=== PATIENT | male | born 1960 | race African-American/Black ===

== ENCOUNTER 2021-06-17 14:41 | Inpatient (IN) ==
[2021-06-17] MEDS ORDERED: Ipratropium/Albuterol Neb 3 ML IH ONE (16:47)
[2021-06-17] MEDS ORDERED: methylPREDNISolone 125 MG/2 ML VIAL IVP ONE (16:47)
[2021-06-17 17:45] LABS: Basophils % 0.2 %; Mean Corpuscular Volume 70.7 fL (83.0-100.0)
[2021-06-17 17:47] LABS: Eosinophils # 0.2 K/mcL (0.0-0.6); Eosinophils % 2.3 %; Hematocrit 23.4 % (37.5-50.1); Hemoglobin 6.8 g/dL (12.9-16.9); Immature Granulocytes % 0.5 % (0-4); Immature Platelets 7.1 % (1.1-6.1); Lymphocytes # 0.6 K/mcL (0.6-4.6); Lymphocytes % 9.2 %; Mean Corpuscular HGB Conc 29.1 g/dL (31.6-35.5); Mean Corpuscular Hemoglobin 20.5 pg (28.0-33.3); Monocytes # 0.7 K/mcL (0.0-1.3); Monocytes % 10.9 %; Platelet Count 272 K/mcL (140-400); Red Blood Count 3.31 M/mcL (4.19-5.50); Red Cell Distribution Width 20.3 % (11.5-14.5); Segmented Neutrophils % 76.9 %; White Blood Count 6.4 K/mcL (4.3-11.1)
[2021-06-17 18:12] LABS: Neutrophils # 4.9 K/mcL (1.6-8.9)
[2021-06-17 18:13] LABS: Anisocytosis 2+ (Not Present); Hypochromasia Present (Not Present); Platelet Estimate Normal (Normal); Target Cells 1+ (Not Present)
[2021-06-17 18:14] LABS: Microcytosis Present (Not Present); Poikilocytosis 1+ (Not Present)
[2021-06-17 18:22] LABS: Troponin I 0.04 ng/mL (< 0.04)
[2021-06-17 18:24] LABS: Influenza A PCR Negative (Negative); Influenza B PCR Negative (Negative); Resp. Syncytial Virus PCR Negative (Negative)
[2021-06-17 18:26] LABS: SARS-CoV-2 by PCR (In House) Negative (Negative)
[2021-06-17] MEDS ORDERED: Isovue-370 500 ML BOTTLE IVP ONE (18:31)
[2021-06-17 18:45] LABS: Albumin 3.3 g/dL (3.5-5.7); Albumin/Globulin Ratio 0.9 (1.1-2.2); Bilirubin,Direct 0.1 mg/dL (0.0-0.2); Bilirubin,Indirect 0.3 mg/dL (0.0-1.0); Bilirubin,Total 0.4 mg/dL (0.3-1.0); Calcium 8.5 mg/dL (8.6-10.3); Globulin 3.7 g/dL (2.4-3.5); Potassium 3.7 mEq/L (3.5-5.1)
[2021-06-17] MEDS ORDERED: Furosemide 40 MG/4 ML VIAL IVP ONE (18:52)
[2021-06-17 19:05] LABS: Bilirubin,Urine Negative (Negative); Blood,Urine Small (Negative); Clarity,Urine Clear (Clear); Color,Urine Yellow (Yellow); Glucose,Urine (UA) 100 mg/dL (Normal); Ketones,Urine Negative (Negative); Leukocyte Esterase,Urine Negative (Negative); Mucus,Urine Few per lpf (None-Few); Nitrite,Urine Negative (Negative); PH,Urine 6.5 pH Units (5.0-8.0); Protein,Urine >=600 mg/dL (Neg-Trace); Specific Gravity,Urine 1.025 (1.010-1.025); Squamous Epithelial Cell,Urine Few per hpf (None-Few); Urobilinogen,Urine Normal (Normal); WBC,Urine 0-3 per hpf (0-3)
[2021-06-17] MEDS ORDERED: Acetaminophen 325 MG TABLET PO PRN (20:21)
[2021-06-17] MEDS ORDERED: Naloxone 0.4 MG/ML INJ IVP PRN (20:21)
[2021-06-17] MEDS ORDERED: Ondansetron 4 MG/2 ML VIAL IVP PRN (20:21)
[2021-06-17] MEDS ORDERED: 0.9 % Sodium Chloride 250 ML ONE (21:13)
[2021-06-17] MEDS ORDERED: Perflutren Lipid Microsphere 1.3 ML in 0.9 % Sodium Chloride 8.7 ML IVP PRN (21:27)
[2021-06-17] MEDS ORDERED: *HR* Dextrose 50 % in Water (Syg) 50 ML SYRINGE IVP PRN ×2 (21:37→23:47)
[2021-06-17] MEDS ORDERED: D5% in Water 1,000 ML IVC PRN ×2 (21:37→23:47)
[2021-06-17] MEDS ORDERED: Dextrose Gel 15 GM/37.5 ML TUBE PO PRN ×4 (21:37→23:47)
[2021-06-18] MEDS: Ipratropium/Albuterol Neb 3 ML IH SCH ×3 (00:06→08:08)
[2021-06-18] MEDS: Insulin LISPRO 300 UNITS/3 ML VIAL SUBQ SCH ×5 (00:32→21:07)
[2021-06-18] MEDS: Pantoprazole 40 MG VIAL IVP SCH ×3 (01:03→23:41)
[2021-06-18] MEDS: MethylPREDNISolone 40 MG/ML VIAL IVP SCH ×2 (01:04→05:18)
[2021-06-18] MEDS: Azithromycin 500 MG in 0.9 % Sodium Chloride 250 ML IVPB SCH ×2 (01:04→21:07)
[2021-06-18] MEDS: traZODone 50 MG TABLET PO SCH ×2 (01:05→21:07)
[2021-06-18 02:09] LABS: Hematocrit 27.4 % (37.5-50.1); Hemoglobin 7.9 g/dL (12.9-16.9); Immature Platelets 6.2 % (1.1-6.1); Mean Corpuscular HGB Conc 28.8 g/dL (31.6-35.5); Mean Corpuscular Hemoglobin 20.7 pg (28.0-33.3); Mean Corpuscular Volume 71.9 fL (83.0-100.0); Platelet Count 255 K/mcL (140-400); Red Blood Count 3.81 M/mcL (4.19-5.50); Red Cell Distribution Width 21.1 % (11.5-14.5); White Blood Count 4.6 K/mcL (4.3-11.1)
[2021-06-18 02:28] LABS: Calcium 8.2 mg/dL (8.6-10.3); Troponin I 0.03 ng/mL (< 0.04)
[2021-06-18] MEDS: Furosemide 20 MG/2 ML VIAL IVP SCH (09:01)
[2021-06-18 10:00] LABS: INR 1.4; Prothrombin Time 15.6 Seconds (9.4-12.1)
[2021-06-18 10:04] LABS: Albumin 3.4 g/dL (3.5-5.7); Albumin/Globulin Ratio 0.9 (1.1-2.2); Bilirubin,Direct 0.1 mg/dL (0.0-0.2); Bilirubin,Indirect 0.4 mg/dL (0.0-1.0); Bilirubin,Total 0.5 mg/dL (0.3-1.0); Globulin 3.9 g/dL (2.4-3.5); Total Protein 7.3 g/dL (6.4-8.9)
[2021-06-18] MEDS ORDERED: Ipratropium/Albuterol Neb 3 ML IH PRN (10:41)
[2021-06-18] MEDS ORDERED: *HR* Propofol 200 MG/20 ML VIAL IVP ONE ×2 (13:29→13:48)
[2021-06-18] MEDS ORDERED: Lidocaine -MPF 2% 5 ML VIAL ONE (13:30)
[2021-06-18] MEDS: *HR* Heparin 5,000 UNIT/ML VIAL SQ SCH ×2 (15:02→21:07)
[2021-06-18 15:46] LABS: Uric Acid 8.3 mg/dL (2.3-7.6)
[2021-06-18] MEDS: carvediloL 25 MG TABLET PO SCH (16:52)
[2021-06-18] MEDS: Albumin 25% 25gram/100mL 25 GM/100 ML IV.SOLN IVPB SCH (16:54)
[2021-06-19] MEDS: Albumin 25% 25gram/100mL 25 GM/100 ML IV.SOLN IVPB SCH ×2 (01:12→06:06)
[2021-06-19 04:28] LABS: Hemoglobin 7.4 g/dL (12.9-16.9); Red Cell Distribution Width 20.2 % (11.5-14.5)
[2021-06-19 04:30] LABS: Hematocrit 26.4 % (37.5-50.1); Immature Platelets 6.2 % (1.1-6.1); Mean Corpuscular Hemoglobin 20.3 pg (28.0-33.3); Mean Corpuscular Volume 72.5 fL (83.0-100.0); Mean Platelet Volume 11.2 fL (9.4-12.4); Red Blood Count 3.64 M/mcL (4.19-5.50); White Blood Count 7.5 K/mcL (4.3-11.1)
[2021-06-19 05:28] LABS: Calcium 8.3 mg/dL (8.6-10.3); Potassium 4.6 mEq/L (3.5-5.1)
[2021-06-19] MEDS: *HR* Heparin 5,000 UNIT/ML VIAL SQ SCH ×2 (06:07→14:44)
[2021-06-19] MEDS: predniSONE 20 MG TABLET PO SCH (08:04)
[2021-06-19] MEDS: carvediloL 25 MG TABLET PO SCH ×2 (08:04→16:08)
[2021-06-19] MEDS: Furosemide 20 MG/2 ML VIAL IVP SCH (08:04)
[2021-06-19] MEDS: Insulin LISPRO 300 UNITS/3 ML VIAL SUBQ SCH ×4 (08:05→20:49)
[2021-06-19] MEDS: Pantoprazole 40 MG VIAL IVP SCH (11:20)
[2021-06-19] MEDS ORDERED: Azithromycin 500 MG in 0.9 % Sodium Chloride 250 ML IVPB SCH (14:00)
[2021-06-19] MEDS ORDERED: Albumin 25% 25gram/100mL 25 GM/100 ML IV.SOLN IVPB SCH (14:00)
[2021-06-19] MEDS: cefTRIAXone 1,000 MG in 0.9 % Sodium Chloride Mini Bag 100 ML IVPB SCH (14:43)
[2021-06-19] MEDS: hydrALAZINE 25 MG TABLET PO SCH ×2 (16:00→20:48)
[2021-06-19] MEDS: Ipratropium/Albuterol Neb 3 ML IH SCH ×3 (16:11→23:40)
[2021-06-19] MEDS: Insulin DETEMIR 100 UNIT/ML X5UNITS SUBQ SCH ×2 (17:19→20:49)
[2021-06-19] MEDS: traZODone 50 MG TABLET PO SCH (20:48)
[2021-06-20] MEDS: Ipratropium/Albuterol Neb 3 ML IH SCH ×6 (03:34→23:35)
[2021-06-20 05:12] LABS: Hematocrit 24.7 % (37.5-50.1); Immature Platelets 7.6 % (1.1-6.1); Mean Corpuscular HGB Conc 28.3 g/dL (31.6-35.5); Mean Corpuscular Hemoglobin 20.7 pg (28.0-33.3); Mean Corpuscular Volume 73.1 fL (83.0-100.0); Platelet Count 209 K/mcL (140-400); Red Blood Count 3.38 M/mcL (4.19-5.50); Red Cell Distribution Width 20.6 % (11.5-14.5)
[2021-06-20 05:17] LABS: Calcium 8.8 mg/dL (8.6-10.3); Potassium 4.5 mEq/L (3.5-5.1)
[2021-06-20] MEDS: Furosemide 20 MG/2 ML VIAL IVP SCH (07:23)
[2021-06-20] MEDS: hydrALAZINE 25 MG TABLET PO SCH ×3 (07:24→20:41)
[2021-06-20] MEDS: carvediloL 25 MG TABLET PO SCH ×2 (07:25→18:18)
[2021-06-20] MEDS: predniSONE 20 MG TABLET PO SCH (07:26)
[2021-06-20] MEDS: cefTRIAXone 1,000 MG in 0.9 % Sodium Chloride Mini Bag 100 ML IVPB SCH (07:34)
[2021-06-20] MEDS: Insulin DETEMIR 100 UNIT/ML X5UNITS SUBQ SCH ×2 (07:40→20:41)
[2021-06-20] MEDS: Insulin LISPRO 300 UNITS/3 ML VIAL SUBQ SCH ×4 (07:40→20:41)
[2021-06-20] MEDS: Azithromycin 250 MG TABLET PO SCH (07:52)
[2021-06-20] MEDS ORDERED: NON-FORMULARY MEDICATION 1 EACH EACH (Pantoprazole Sodium [Protonix] 40 MG Tablet.Dr) PO SCH (09:00)
[2021-06-20 09:41] LABS: Estimated Average Glucose 206 mg/dl; Hemoglobin A1C 8.8 %
[2021-06-20] MEDS ORDERED: 0.9 % Sodium Chloride 250 ML ONE (10:03)
[2021-06-20 11:11] LABS: Acinetobacter baumannii by PCR Not Detected (Not Detect); Candida albicans by PCR Not Detected (Not Detect); Candida glabrata by PCR Not Detected (Not Detect); Candida krusei by PCR Not Detected (Not Detect); Candida parapsilosis by PCR Not Detected (Not Detect); Candida tropicalis by PCR Not Detected (Not Detect); Enterobacter cloacae Cmplx PCR Not Detected (Not Detect); Enterobacteriaceae by PCR Not Detected (Not Detect); Enterococcus by PCR Not Detected (Not Detect); Escherichia coli by PCR Not Detected (Not Detect); Klebsiella oxytoca by PCR Not Detected (Not Detect); Klebsiella pneumoniae by PCR Not Detected (Not Detect); Proteus by PCR Not Detected (Not Detect); Pseudomonas aeruginosa by PCR Not Detected (Not Detect); Serratia marcescens by PCR Not Detected (Not Detect); Staphylococcus aureus by PCR Not Detected (Not Detect); Staphylococcus by PCR Not Detected (Not Detect); Streptococcus agalactiae(B)PCR Not Detected (Not Detect); Streptococcus by PCR Not Detected (Not Detect); Streptococcus pneumoniae PCR Not Detected (Not Detect); Streptococcus pyogenes (A) PCR Not Detected (Not Detect)
[2021-06-20] MEDS ORDERED: Insulin DETEMIR 100 UNIT/ML X5UNITS SUBQ ONE (11:21)
[2021-06-20 16:54] LABS: Hematocrit 30.1 % (37.5-50.1); Hemoglobin 8.5 g/dL (12.9-16.9)
[2021-06-20 17:57] LABS: Magnesium 2.6 mg/dL (1.6-2.6)
[2021-06-20] MEDS: Ampicillin/Sulbactam 3,000 MG in 0.9 % Sodium Chloride Mini Bag 100 ML IVPB SCH (18:18)
[2021-06-20] MEDS: traZODone 50 MG TABLET PO SCH (20:41)
[2021-06-21] MEDS: Ampicillin/Sulbactam 3,000 MG in 0.9 % Sodium Chloride Mini Bag 100 ML IVPB SCH ×4 (00:08→18:01)
[2021-06-21] MEDS: Ipratropium/Albuterol Neb 3 ML IH SCH ×5 (03:22→20:28)
[2021-06-21 04:57] LABS: Hematocrit 27.9 % (37.5-50.1); Hemoglobin 7.8 g/dL (12.9-16.9); Immature Platelets 6.5 % (1.1-6.1); Mean Corpuscular Hemoglobin 21.1 pg (28.0-33.3); Mean Corpuscular Volume 75.4 fL (83.0-100.0); Platelet Count 212 K/mcL (140-400); Red Cell Distribution Width 20.7 % (11.5-14.5); White Blood Count 6.6 K/mcL (4.3-11.1)
[2021-06-21 05:14] LABS: Calcium 8.3 mg/dL (8.6-10.3); Potassium 4.6 mEq/L (3.5-5.1)
[2021-06-21 05:23] LABS: Iron 281 mcg/dL (65-175)
[2021-06-21] MEDS ORDERED: *HR* Labetalol 20 MG/4 ML SYRINGE IVP ONE ×2 (07:27→15:19)
[2021-06-21] MEDS: Azithromycin 250 MG TABLET PO SCH (08:01)
[2021-06-21] MEDS: carvediloL 25 MG TABLET PO SCH ×2 (08:02→16:28)
[2021-06-21] MEDS: hydrALAZINE 25 MG TABLET PO SCH ×3 (08:02→20:44)
[2021-06-21] MEDS: predniSONE 20 MG TABLET PO SCH (08:02)
[2021-06-21] MEDS: Furosemide 20 MG/2 ML VIAL IVP SCH (08:03)
[2021-06-21] MEDS: Insulin LISPRO 300 UNITS/3 ML VIAL SUBQ SCH ×4 (08:14→20:42)
[2021-06-21] MEDS: Insulin DETEMIR 100 UNIT/ML X5UNITS SUBQ SCH ×2 (08:21→20:43)
[2021-06-21] MEDS ORDERED: Furosemide 20 MG/2 ML VIAL IVP ONE (10:12)
[2021-06-21 10:38] LABS: % Iron Saturation 94 % (20-55); Transferrin 213
[2021-06-21] MEDS: cefTRIAXone 1,000 MG in Water for inj. (sterile) 10 ML IVP SCH (11:49)
[2021-06-21] MEDS: NIFEdipine XL (24 HR) 60 MG TAB.ER.24 PO SCH (13:07)
[2021-06-21] MEDS ORDERED: 0.9 % Sodium Chloride 250 ML ONE (14:19)
[2021-06-21] MEDS: traZODone 50 MG TABLET PO SCH (20:45)
[2021-06-22] MEDS: Ampicillin/Sulbactam 3,000 MG in 0.9 % Sodium Chloride Mini Bag 100 ML IVPB SCH ×2 (00:17→05:40)
[2021-06-22] MEDS: Ipratropium/Albuterol Neb 3 ML IH SCH ×7 (04:40→23:58)
[2021-06-22 05:53] LABS: Hematocrit 31.1 % (37.5-50.1); Hemoglobin 9.1 g/dL (12.9-16.9); Mean Corpuscular HGB Conc 29.3 g/dL (31.6-35.5); Mean Corpuscular Volume 75.3 fL (83.0-100.0); Mean Platelet Volume 10.4 fL (9.4-12.4); Platelet Count 229 K/mcL (140-400); Red Blood Count 4.13 M/mcL (4.19-5.50); White Blood Count 7.4 K/mcL (4.3-11.1)
[2021-06-22 06:13] LABS: BUN/Creatinine Ratio 21 (6-26); Blood Urea Nitrogen 24 mg/dL (8-23); Calcium 5.5 mg/dL (8.6-10.3); Carbon Dioxide 19 mEq/L (23-29); Chloride 122 mEq/L (98-107); Glucose 174 mg/dL (70-105); Osmolality,Calculated 306 (280-300); Potassium 2.5 mEq/L (3.5-5.1); Sodium 144 mEq/L (136-145); eGFR For African Americans > 60 (> 60); eGFR For Non-African Americans > 60 (> 60)
[2021-06-22 07:26] LABS: Albumin 3.3 g/dL (3.5-5.7); Albumin/Globulin Ratio 1.1 (1.1-2.2); Bilirubin,Total 0.3 mg/dL (0.3-1.0); Potassium 3.8 mEq/L (3.5-5.1); Total Protein 6.3 g/dL (6.4-8.9)
[2021-06-22] MEDS: Insulin LISPRO 300 UNITS/3 ML VIAL SUBQ SCH ×4 (08:48→22:15)
[2021-06-22] MEDS: predniSONE 20 MG TABLET PO SCH (08:49)
[2021-06-22] MEDS: hydrALAZINE 25 MG TABLET PO SCH ×3 (08:49→22:14)
[2021-06-22] MEDS: Insulin DETEMIR 100 UNIT/ML X5UNITS SUBQ SCH ×2 (08:49→22:36)
[2021-06-22] MEDS: carvediloL 25 MG TABLET PO SCH ×2 (08:49→16:16)
[2021-06-22] MEDS: Azithromycin 250 MG TABLET PO SCH (08:50)
[2021-06-22] MEDS: cefTRIAXone 1,000 MG in Water for inj. (sterile) 10 ML IVP SCH (08:50)
[2021-06-22] MEDS: NIFEdipine XL (24 HR) 60 MG TAB.ER.24 PO SCH (08:50)
[2021-06-22] MEDS: Furosemide 40 MG/4 ML VIAL IVP SCH (08:50)
[2021-06-22] MEDS: cloNIDine HCL 0.1 MG TABLET PO SCH ×3 (12:46→22:14)
[2021-06-22] MEDS: traZODone 50 MG TABLET PO SCH (22:13)
[2021-06-23] MEDS: Ipratropium/Albuterol Neb 3 ML IH SCH ×4 (05:50→16:26)
[2021-06-23 07:04] LABS: Hematocrit 35.5 % (37.5-50.1); Hemoglobin 10.5 g/dL (12.9-16.9); Mean Corpuscular HGB Conc 29.6 g/dL (31.6-35.5)
[2021-06-23 07:06] LABS: Immature Platelets 7.7 % (1.1-6.1); Mean Corpuscular Hemoglobin 22.4 pg (28.0-33.3); Mean Corpuscular Volume 75.7 fL (83.0-100.0); Platelet Count 263 K/mcL (140-400); Red Blood Count 4.69 M/mcL (4.19-5.50)
[2021-06-23 07:26] LABS: Calcium 9.4 mg/dL (8.6-10.3); Potassium 3.6 mEq/L (3.5-5.1)
[2021-06-23] MEDS: hydrALAZINE 25 MG TABLET PO SCH ×2 (08:39→15:06)
[2021-06-23] MEDS: NIFEdipine XL (24 HR) 60 MG TAB.ER.24 PO SCH (08:40)
[2021-06-23] MEDS: cloNIDine HCL 0.1 MG TABLET PO SCH ×2 (08:40→15:06)
[2021-06-23] MEDS: carvediloL 25 MG TABLET PO SCH ×2 (08:40→16:57)
[2021-06-23] MEDS: Furosemide 40 MG/4 ML VIAL IVP SCH (08:40)
[2021-06-23] MEDS: Insulin DETEMIR 100 UNIT/ML X5UNITS SUBQ SCH (08:49)
[2021-06-23] MEDS: Insulin LISPRO 300 UNITS/3 ML VIAL SUBQ SCH ×2 (08:49→12:30)
[2021-06-23] MEDS ORDERED: predniSONE 20 MG TABLET PO ONE (09:00)
[2021-06-23 15:50] VITALS: BP 134/75; PULSE 64; TEMP 97.5
[2021-06-23 16:29] VITALS: O2SAT 98
[2021-06-23] MEDS ORDERED: Furosemide 40 MG TABLET PO SCH (17:00)
== END 2021-06-23 17:06 | disposition home or self-care (01) | DRG 368 ==
LOC: 3ANU 14:41 → EMEROOARM 14:41 → SUATTDRO 20:26 → 3ANU 21:05 → SUATTDRO 06-19 15:02
PROVIDERS: ADMIT Internal Medicine; ATTEND Internal Medicine
PROC: ENDOEBX (2021-06-18 13:50)

== ENCOUNTER 2022-03-10 16:51 | Inpatient (IN) ==
[2022-03-12 12:02] LABS: Complement C3 118 mg/dL (87-200)
[2022-03-12 12:20] LABS: Uric Acid 9.7 mg/dL (2.3-7.6)
[2022-03-12 12:37] LABS: Calcium 8.1 mg/dL (8.6-10.3); Potassium 3.8 mEq/L (3.5-5.1)
[2022-03-12 12:38] LABS: Albumin 2.6 g/dL (3.5-5.7); Albumin/Globulin Ratio 0.9 (1.1-2.2); Bilirubin,Direct 0.2 mg/dL (0.0-0.2); Bilirubin,Indirect 0.3 mg/dL (0.0-1.0); Bilirubin,Total 0.5 mg/dL (0.3-1.0); Total Protein 5.6 g/dL (6.4-8.9)
[2022-03-12 14:36] LABS: Glucose,Peritoneal Fluid 103 mg/dL (No Ref Range); LDH,Peritoneal Fluid 72 Units/L (No Ref Range); Total Protein,Peritoneal Fluid < 2.0 g/dL
[2022-03-12 15:01] LABS: Calcium 8.3 mg/dL (8.6-10.3); Potassium 4.1 mEq/L (3.5-5.1)
[2022-03-12 15:02] LABS: Albumin 2.7 g/dL (3.5-5.7); Albumin/Globulin Ratio 0.8 (1.1-2.2); Bilirubin,Total 0.6 mg/dL (0.3-1.0); Chol/HDL Ratio 37.4 (0-4.9); Globulin 3.6 g/dL (2.4-3.5); Total Protein 6.3 g/dL (6.4-8.9)
[2022-03-12 15:35] LABS: Creatinine,Urine 214 mg/dL; Microalbumin,Urine > 1350 mg/L; Protein/Creatinine Ratio,Urine 5.47 mg/mg (0.00-0.20)
[2022-03-13 07:54] LABS: Clarity,Urine Clear (Clear); Color,Urine Yellow (Yellow); Glucose,Urine (UA) 500 mg/dL (Normal)
[2022-03-13 07:55] LABS: Bilirubin,Urine Negative (Negative); Blood,Urine Moderate (Negative); Ketones,Urine Trace mg/dL (Negative); PH,Urine 6.5 pH Units (5.0-8.0); Specific Gravity,Urine 1.025 (1.010-1.025)
[2022-03-13 07:56] LABS: Leukocyte Esterase,Urine Negative (Negative); Nitrite,Urine Negative (Negative); Protein,Urine >=600 mg/dL (Neg-Trace); Urobilinogen,Urine Normal (Normal)
[2022-03-13 07:57] LABS: Bacteria,Urine Few per hpf (None-Few); Budding Yeast,Urine Few per hpf (None Seen)
[2022-03-13 08:01] LABS: Hematocrit 37.9 % (37.5-50.1); Hemoglobin 12.3 g/dL (12.9-16.9); Mean Corpuscular HGB Conc 32.5 g/dL (31.6-35.5); Mean Corpuscular Hemoglobin 25.9 pg (28.0-33.3); Mean Platelet Volume 11.2 fL (9.4-12.4); Neutrophils # 5.8 K/mcL (1.6-8.9); Platelet Count 244 K/mcL (140-400); Red Blood Count 4.74 M/mcL (4.19-5.50); Red Cell Distribution Width 21.5 % (11.5-14.5); Segmented Neutrophils % 82.9 %
[2022-03-13 08:02] LABS: Basophils % 0.3 %; Eosinophils # 0.1 K/mcL (0.0-0.6); Eosinophils % 1.4 %; Immature Granulocytes % 0.3 % (0-4); Lymphocytes # 0.4 K/mcL (0.6-4.6); Lymphocytes % 5.5 %; Monocytes # 0.7 K/mcL (0.0-1.3); Monocytes % 9.6 %
[2022-03-13 08:04] LABS: Hematocrit 34.7 % (37.5-50.1); Mean Corpuscular HGB Conc 31.7 g/dL (31.6-35.5); Mean Corpuscular Hemoglobin 25.6 pg (28.0-33.3); Mean Corpuscular Volume 80.7 fL (83.0-100.0); Red Cell Distribution Width 21.2 % (11.5-14.5); White Blood Count 5.4 K/mcL (4.3-11.1)
[2022-03-13 08:05] LABS: Immature Platelets 5.1 % (1.1-6.1); Platelet Count 164 K/mcL (140-400); Segmented Neutrophils % 73.8 %
[2022-03-13 08:06] LABS: Basophils % 0.4 %; Eosinophils # 0.2 K/mcL (0.0-0.6); Eosinophils % 3.4 %; Immature Granulocytes % 0.4 % (0-4); Lymphocytes # 0.5 K/mcL (0.6-4.6); Lymphocytes % 9.7 %; Monocytes # 0.7 K/mcL (0.0-1.3); Monocytes % 12.3 %
[2022-03-13 08:15] LABS: Appearance of Peritoneal Fl HAZY (Clear)
[2022-03-13 08:18] LABS: Basophils,Peritoneal Fluid 0 %; Eosinophils,Peritoneal Fluid 0 %; RBC,Peritoneal Fluid 5000 RBC/mcL
[2022-03-13 08:23] LABS: INR 1.4
[2022-03-13 08:24] LABS: Prothrombin Time 15.3 Seconds (9.4-12.1)
[2022-03-17 10:34] LABS: Fluid Source for Albumin PERITONEAL
[2022-03-17 10:41] LABS: Alpha 2 Globulin (PEP) 0.98
[2022-03-17 10:42] LABS: Beta Globulin (PEP) 0.49
[2022-03-17 10:44] LABS: IFE Reflexed NOT DONE
[2022-03-17 10:49] LABS: ANA IgG by ELISA NONE DETECTED
[2022-03-17 10:52] LABS: Serine Protease-3 Antibody 0
[2022-03-17 10:53] LABS: ANCA IFA Titer NONE DETECTED
== END 2022-03-11 14:11 | disposition hospice, home (50) | DRG 433 ==
LOC: 2ANU 16:51 → SUATTDRO 16:51
PROVIDERS: ADMIT Student in an Organized Health Care Education/Training Program; ATTEND Internal Medicine